=== PATIENT | female | born 1970 | race Asian ===

== ENCOUNTER 2022-04-05 10:16 | Outpatient (CLI) | payer OTHER ==
[2022-04-05 10:40] LABS: PLATELET COUNT 338 K/uL (152-353)
[2022-04-05 11:00] LABS: POTASSIUM 3.8 mmol/L (3.6-5.2)
== END 2022-04-05 19:04 | disposition home or self-care (01) ==
LOC: LABW 10:16
PROVIDERS: ATTEND Nurse Practitioner Family
DX: Z00.00 Encounter for general adult medical examination without abnormal findings (principal); Z79.899 Other long term (current) drug therapy; R73.01 Impaired fasting glucose; R53.83 Other fatigue
CPT/HCPCS: 36415; 80053; 80061; 83036; 84443; 85027